=== PATIENT | female | born 1995 | race African-American/Black ===

== ENCOUNTER 2017-04-02 14:37 | Inpatient (IN) | payer BC ==
[~2017-04-02] VITALS: Ht 160 cm; Wt 70.1 kg
[2017-04-02] VITALS (10 sets, daily range): BP systolic 120–166; BP diastolic 58–70
[2017-04-02] MEDS ORDERED: PROPOFOL 50 ML IV ONE (14:52)
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
[2017-04-02] MEDS ORDERED: IV RINGERS,LACTATED 1000ML 1,000 ML IV SCH ×2 (15:14)
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
[2017-04-02] MEDS ORDERED: fentaNYL PF VIAL 100 MCG/2 ML VIAL IV PRN ×4 (15:15→18:30)
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
[2017-04-02 15:21] LABS: BASO % 1 % (0-3); EOS % 2 % (0-3); HEMATOCRIT 39.1 % (36.0-47.0); HEMOGLOBIN 13.3 g/dL (12.0-15.5); LYMPH # 3.8 x10^3/uL (1.0-4.8); LYMPH % 37 % (24-48); MEAN CORPUSCULAR HEMOGLOBIN 32 pg (25-35); MEAN CORPUSCULAR HGB CONC 34 g/dL (31-37); MEAN CORPUSCULAR VOLUME 92 fL (79-100); MONO % 7 % (0-9); NEUT % 54 % (31-73); PLATELET COUNT 254 x10^3/uL (140-400); RED BLOOD COUNT 4.23 x10^6/uL (3.50-5.40); RED CELL DISTRIBUTION WIDTH 13.6 % (11.5-14.5); WHITE BLOOD COUNT 10.5 x10^3/uL (4.0-11.0)
[2017-04-02 15:27] LABS: INR 1.1 (0.8-1.1); PROTHROMBIN TIME PATIENT 13.6 SEC (11.7-14.0)
[2017-04-02 15:28] LABS: CALCIUM 8.7 mg/dL (8.5-10.1); CREATININE 0.9 mg/dL (0.6-1.0); GFR 78.3; POTASSIUM 3.2 mmol/L (3.5-5.1)
[2017-04-02 15:32] LABS: NEG OBC SER NEG; POS OBC SER POS
[2017-04-02 15:35] LABS: DIRECT BILIRUBIN 0.1 mg/dL (0.0-0.2); TOTAL BILIRUBIN 0.7 mg/dL (0.2-1.0); TOTAL PROTEIN 7.8 g/dL (6.4-8.2)
[2017-04-02] MEDS ORDERED: SURGICEL HEMOSTAT 4X8 EACH. ONE (16:14)
[2017-04-02] MEDS ORDERED: PROPOFOL 10 MG/ML (50ML) VIAL. IV ONE (16:21)
[2017-04-02] MEDS ORDERED: ETOMIDATE 20 MG/10 ML VIAL. IV ONE ×2 (16:21)
[2017-04-02] MEDS ORDERED: SUCCINYLCHOLINE 200 MG/10 ML VIAL. ONE ×2 (16:21→16:22)
[2017-04-02] MEDS ORDERED: SEVOFLURANE > 120 MINUTES. IH ONE (16:40)
[2017-04-02] MEDS ORDERED: DEXAMETHASONE SOD PHOS 20 MG/5 ML VIAL. ONE (16:40)
[2017-04-02] MEDS ORDERED: PHENYLEPHRINE in 0.9% NACL PF 1 MG/10 ML DISP.SYRIN. IV ONE (16:40)
[2017-04-02] MEDS ORDERED: ROCURONIUM 50 MG/5 ML VIAL. ONE (16:40)
[2017-04-02] MEDS ORDERED: MIDAZOLAM HCL/PF 2 MG/2 ML VIAL. IV PRN (17:00)
[2017-04-02] MEDS ORDERED: PROCHLORPERAZINE 10 MG/2 ML VIAL. IV PRN (17:00)
[2017-04-02] MEDS ORDERED: POTASSIUM CHLORIDE 20MEQ 50 ML IV SCH (17:00)
[2017-04-02] MEDS ORDERED: HYDROmorphone 2 MG/ML VIAL IV PRN ×2 (17:00)
[2017-04-02] MEDS ORDERED: ONDANSETRON PF 4 MG/2 ML VIAL. IV PRN (17:00)
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
[2017-04-02] MEDS: POTASSIUM CHLORIDE 10MEQ 100 ML IV SCH ×4 (17:40→21:48)
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
[2017-04-02] MEDS: PROPOFOL 100 ML IV PRN ×2 (18:42→21:48)
[2017-04-02 18:53] LABS: BASE EXCESS COOX -4 mmol/L (-3-3); CARBON MONOXIDE 0.3 % (0.0-1.9); HCO3 COOX 19 mmol/L (21-28); METHEMOGLOBIN 0.4 % (0.0-1.9); OXYHEMOGLOBIN 98.4 %; PCO2 COOX 30 mmHg (35-46); PH COOX 7.43 (7.35-7.45); PO2 COOX 268 mmHg (85-108); SAT O2 COOX 99 % (92-99); TOTAL HEMOGLOBIN 11.6 g/dL
[2017-04-02 18:54] LABS: FIO2 COOX 50
[2017-04-02] MEDS: ENOXAPARIN 40 MG/0.4 ML SYRINGE. SQ SCH (21:49)
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
[2017-04-02] MEDS: MORPHINE SULFATE 2 MG/ML DISP.SYRIN. IV PRN (22:44)
--- NOTE | 2017-04-02 23:26 | ACF ---
Admission Forms Criteria ABDOMINAL PAIN Clinical Indications for Admission to Inpatient Care (Place 'X' for any and all applicable criteria): Admission is indicated for ANY ONE of the following(1)(2)(3)(4)(5): [ ]I. Inpatient admission required rather than observation care (Also use Abdominal Pain: Observation Care, as appropriate) because of ANY ONE of the following: [ ]a) Severe pain requiring acute inpatient management [ ]b) Identification of etiology/finding that requires inpatient care (eg, aortic dissection, free air) [ ]c) Absent bowel sounds with complete ileus(6) [ ]d) Suspected toxic megacolon [ ]e) Severe electrolyte abnormalities requiring inpatient care [ ]f) High fever or infection requiring inpatient admission as indicated by ANY ONE of following(7)(8): [ ] i) Appropriate outpatient or observational care antimicrobial treatment unavailable, not effective, or not feasible [ ] ii) Documented bacteremia [ ] iii) Temperature > 104.9 degrees F (oral) [ ] iv) T >103.1 F (oral) or < 96.8 F(rectal) that does not respond to all emergency treatment measures [ ]g) Signs of intestinal obstruction [B] [ ]h) Hemodynamic instability [ ]i) IV fluid to replace significant ongoing losses (greater than 3 L/m2 per day) (12)(13) [ ]j) Percutaneous or open drainage (eg, abscess, biliary tract ) procedures [ ]k) Parenteral nutrition regimen that must be implemented on inpatient basis [ ]l) Other condition,treatment or monitoring requiring inpatient admission. [ ]II. Peritoneal signs present [X]III. Surgery needed that cannot be performed on an ambulatory basis. [ ]IV. Evaluation requires patient to not eat or drink for extended period ( eg, more than 24 hours). [ ]V. Contraindications and/or Inappropriate clinical situations for Observational Care in patients with abdominal pain, when ANY ONE of the following is required: [ ]a) Thorough evaluation is required to prevent catastrophic events due to delays in diagnosing (e.g.Mesenteric ischemia) 1,3 [ ]b) Patient with severe pathology or with chronic symptoms unlikely to improve in the ED stay (3) [ ]. General contraindications and/or Inappropriate clinical situations for Observational Care in patients with abdominal pain, when ANY ONE of the following is required: [ ]a) Prediction of prolongation of LOS based on ANY ONE of the following may be considered as a contraindication for observational care 2, 3, 4, 5, 6, 7, 8, 9, 10, 11 [ ]i) Age > 65 yrs. [ ]ii) Patient arriving by ambulance [ ]iii) Patient with high acuity [ ]iv) Patient requiring vital sign monitoring [ ]v) Patient on IV medication [ ]b) Systolic blood pressures 180mmHg 3,12 [ ]c) Patient with altered mental status including delirium and other alteration of consciousness, (3) [ ]d) Patient whose discharge disposition will be to a nursing home home or rehabilitation home should not be managed in Emergency Department Observation Unit. CMS rule requires 3 days hospital stay before such placement.3,13 [ ]e) Patient with failure to thrive due to broad array of etiologies 3,16,17 [ ]f) Inability to ambulate 3,14 Extended stay beyond goal length of stay may be needed for(2)(3): [ ]a) Persistent abdominal pain with suspected intra-abdominal process [ ]b) Diagnosed condition requiring continued stay (e.g., pancreatitis, complicated diverticulitis) [ ]c) Surgery (e.g., colectomy) The original [facility] content created by [employer] has been revised. The portions of the content which have been revised are identified through the use of italic text or in bold, and [facility] has neither reviewed nor approved the modified material.All other unmodified content is copyright [facility]. Please see references footnoted in the original [facility] edition 2016 Admission Criteria Met?: Yes DEYSI IVEY Apr 02, 2017 23:26
[2017-04-03] VITALS (21 sets, daily range): BP systolic 93–178; BP diastolic 52–85
[2017-04-03] MEDS: MORPHINE SULFATE 2 MG/ML DISP.SYRIN. IV PRN ×3 (00:10→05:23)
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
[2017-04-03] MEDS: PROPOFOL 100 ML IV PRN (05:23)
[2017-04-03 06:49] LABS: BASO % 0 % (0-3); EOS % 1 % (0-3); HEMATOCRIT 31.2 % (36.0-47.0); HEMOGLOBIN 10.7 g/dL (12.0-15.5); LYMPH # 1.1 x10^3/uL (1.0-4.8); LYMPH % 8 % (24-48); MEAN CORPUSCULAR HEMOGLOBIN 32 pg (25-35); MEAN CORPUSCULAR HGB CONC 34 g/dL (31-37); MEAN CORPUSCULAR VOLUME 92 fL (79-100); MONO % 8 % (0-9); NEUT % 84 % (31-73); PLATELET COUNT 188 x10^3/uL (140-400); RED BLOOD COUNT 3.38 x10^6/uL (3.50-5.40); RED CELL DISTRIBUTION WIDTH 13.6 % (11.5-14.5); WHITE BLOOD COUNT 14.1 x10^3/uL (4.0-11.0)
[2017-04-03 07:12] LABS: ALBUMIN 3.2 g/dL (3.4-5.0); ALBUMIN/GLOBULIN RATIO 1.2 (1.0-1.7); CALCIUM 8.6 mg/dL (8.5-10.1); CREATININE 0.6 mg/dL (0.6-1.0); GFR 151.3; POTASSIUM 3.8 mmol/L (3.5-5.1); TOTAL BILIRUBIN 0.7 mg/dL (0.2-1.0); TOTAL PROTEIN 5.9 g/dL (6.4-8.2)
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
--- NOTE | 2017-04-03 08:29 | RAD ---
Indication respiratory failure. A single view of the chest was obtained and is compared to an examination one day earlier. Endotracheal tube has its tip just above the adam and should be retracted 2 to 3 cm. The heart and pulmonary vessels are normal. The lungs are clear of acute infiltrates. There is no pneumothorax. IMPRESSION: Endotracheal tube with its tip just above the adam. The ET tube should be retracted 2 to 3 cm. No acute or focal process seen in the chest
[2017-04-03 08:35] LABS: FIO2 ABG 40; HCO3 ABG 23 mmol/L (21-28); PCO2 ABG 33 mmHg (35-46); PH ABG 7.46 (7.35-7.45); PO2 ABG 160 mmHg (85-108); SAT O2 ABG 98 % (92-99)
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
[2017-04-03] MEDS ORDERED: NALOXONE 0.4 MG/ML VIAL. IV PRN (10:45)
[2017-04-03 10:55] LABS: ART BE ISTAT -5 mmol/L (0-3); ART GLUC ISTAT 117 mg/dL (70-99); ART HCO3 ISTAT 20 mmol/L (21-28); ART HCT ISTAT 25 % (36-40); ART HGB ISTAT 8.5 g/dL (12-15); ART ION CA ISTAT 1.15 mmol/L (1.13-1.32); ART NA ISTAT 138 mmol/L (135-145); ART PCO2 ISTAT 34 mmHg (35-45); ART PH ISTAT 7.37 (7.35-7.45); ART PO2 ISTAT 401 mmHg (75-100); ART SAT O2 SAT 100 % (95-99); ART TCO2 ISTAT 21 mmol/L (21-32); TOSPEC ART
[2017-04-03] MEDS: PANTOPRAZOLE IV PUSH 40 MG VIAL. IVP SCH (11:14)
[2017-04-03] MEDS: IV NORMAL SALINE 1000ML BAG 1,000 ML IV SCH (11:17)
[2017-04-03] MEDS: diphenhydrAMINE 50 MG/ML VIAL IVP PRN ×2 (15:36→21:16)
[2017-04-03] MEDS: IV RINGERS,LACTATED 1000ML 1,000 ML IV SCH (19:15)
[2017-04-03 20:57] LABS: HEMATOCRIT 27.3 % (36.0-47.0); HEMOGLOBIN 9.2 g/dL (12.0-15.5)
[2017-04-03] MEDS ORDERED: FUROSEMIDE 20 MG/2 ML VIAL. IVP ONE (21:15)
[2017-04-03] MEDS ORDERED: ALBUMIN HUMAN 5% 500 ML IV ONE (21:15)
[2017-04-03] MEDS: ENOXAPARIN 40 MG/0.4 ML SYRINGE. SQ SCH (21:27)
[2017-04-04] VITALS (15 sets, daily range): BP systolic 85–117; BP diastolic 47–74
[2017-04-04] MEDS: IV RINGERS,LACTATED 1000ML 1,000 ML IV SCH ×3 (01:25→23:07)
[2017-04-04] MEDS: diphenhydrAMINE 50 MG/ML VIAL IVP PRN ×4 (03:05→21:10)
[2017-04-04 04:37] LABS: BASO % 0 % (0-3); EOS % 0 % (0-3); HEMATOCRIT 28.5 % (36.0-47.0); HEMOGLOBIN 9.6 g/dL (12.0-15.5); LYMPH # 1.7 x10^3/uL (1.0-4.8); LYMPH % 14 % (24-48); MEAN CORPUSCULAR HEMOGLOBIN 32 pg (25-35); MEAN CORPUSCULAR HGB CONC 34 g/dL (31-37); MEAN CORPUSCULAR VOLUME 94 fL (79-100); MONO % 8 % (0-9); NEUT % 78 % (31-73); PLATELET COUNT 147 x10^3/uL (140-400); RED BLOOD COUNT 3.04 x10^6/uL (3.50-5.40); RED CELL DISTRIBUTION WIDTH 14.1 % (11.5-14.5); WHITE BLOOD COUNT 11.5 x10^3/uL (4.0-11.0)
[2017-04-04 05:01] LABS: CALCIUM 8.6 mg/dL (8.5-10.1); CREATININE 0.8 mg/dL (0.6-1.0); GFR 108.5; POTASSIUM 3.3 mmol/L (3.5-5.1)
[2017-04-04] MEDS: IV NORMAL SALINE 1000ML BAG 1,000 ML IV SCH (05:39)
[2017-04-04] MEDS: PANTOPRAZOLE IV PUSH 40 MG VIAL. IVP SCH (08:16)
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
[2017-04-04] MEDS ORDERED: diphenhydrAMINE 50 MG/ML VIAL IVP PRN (11:15)
[2017-04-04] MEDS: POTASSIUM CHLORIDE 10MEQ 100 ML IV SCH ×2 (12:03→15:29)
[2017-04-04] MEDS ORDERED: ACETAMINOPHEN 325 MG TABLET. PO PRN (19:45)
[2017-04-04] MEDS ORDERED: ACETAMINOPHEN 325 MG SUPP.RECT. PR PRN (21:00)
[2017-04-04] MEDS: ENOXAPARIN 40 MG/0.4 ML SYRINGE. SQ SCH (21:10)
[2017-04-04 21:47] LABS: BILIRUBIN,URINE NEGATIVE (NEG); GLUCOSE,URINE NEGATIVE (NEG); NITRITE,URINE POSITIVE (NEG); PROTEIN,URINE 100 mg/dL (NEG-TRACE); UROBILINOGEN,URINE 0.2 mg/dL (0.2 mg/dL)
[2017-04-04 21:51] LABS: BACTERIA,URINE MODERATE /HPF (0-FEW); SQUAMOUS EPITHELIAL CELL,UR OCC /LPF; WBC,URINE TNTC /HPF (0-4)
[2017-04-05] VITALS (7 sets, daily range): BP systolic 84–106; BP diastolic 46–62
[2017-04-05 05:25] LABS: BASO % 0 % (0-3); EOS % 0 % (0-3); HEMATOCRIT 25.2 % (36.0-47.0); HEMOGLOBIN 8.5 g/dL (12.0-15.5); LYMPH # 1.3 x10^3/uL (1.0-4.8); LYMPH % 12 % (24-48); MEAN CORPUSCULAR HEMOGLOBIN 32 pg (25-35); MEAN CORPUSCULAR HGB CONC 34 g/dL (31-37); MEAN CORPUSCULAR VOLUME 94 fL (79-100); MONO % 8 % (0-9); NEUT % 80 % (31-73); PLATELET COUNT 144 x10^3/uL (140-400); RED BLOOD COUNT 2.68 x10^6/uL (3.50-5.40); RED CELL DISTRIBUTION WIDTH 13.6 % (11.5-14.5); WHITE BLOOD COUNT 11.3 x10^3/uL (4.0-11.0)
[2017-04-05 05:53] LABS: CALCIUM 8.2 mg/dL (8.5-10.1); CREATININE 0.7 mg/dL (0.6-1.0); GFR 126.6; POTASSIUM 3.5 mmol/L (3.5-5.1)
[2017-04-05] MEDS: diphenhydrAMINE 50 MG/ML VIAL IVP PRN ×2 (07:38→14:51)
[2017-04-05] MEDS: PANTOPRAZOLE IV PUSH 40 MG VIAL. IVP SCH (07:38)
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
[2017-04-05] MEDS ORDERED: BENZOCAINE/MENTHOL LOZENGE. PO PRN (10:30)
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
[2017-04-05] MEDS: IV NORMAL SALINE 1000ML BAG 1,000 ML IV SCH (11:00)
[2017-04-05] MEDS: IV RINGERS,LACTATED 1000ML 1,000 ML IV SCH (11:08)
[2017-04-05] MEDS: POLYVINYL ALCOHOL 1.4% OPHTH SOLUTION 15ML BOTTLE. OU PRN (12:14)
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
[2017-04-05] MEDS: POTASSIUM CL 20MEQ-0.45% NACL 1,000 ML IV SCH (18:17)
[2017-04-05] MEDS ORDERED: diphenhydrAMINE 50 MG/ML VIAL IVP PRN (20:45)
[2017-04-05] MEDS: ENOXAPARIN 40 MG/0.4 ML SYRINGE. SQ SCH (20:52)
[2017-04-05] MEDS: oxyCODONE/APAP 5/325 1 TAB TABLET PO PRN (21:21)
[2017-04-06] MEDS: fentaNYL PF VIAL 100 MCG/2 ML VIAL IV PRN ×2 (01:03→04:42)
[2017-04-06 03:01] VITALS: BP 101/60
[2017-04-06] MEDS: oxyCODONE/APAP 5/325 1 TAB TABLET PO PRN ×5 (06:11→23:15)
[2017-04-06 07:00] VITALS: BP 100/52
[2017-04-06] MEDS: POLYVINYL ALCOHOL 1.4% OPHTH SOLUTION 15ML BOTTLE. OU PRN (07:55)
[2017-04-06] MEDS: POTASSIUM CL 20MEQ-0.45% NACL 1,000 ML IV SCH ×2 (08:30→23:16)
[2017-04-06 08:37] LABS: BASO % 0 % (0-3); EOS % 2 % (0-3); HEMATOCRIT 24.5 % (36.0-47.0); HEMOGLOBIN 8.3 g/dL (12.0-15.5); LYMPH # 1.2 x10^3/uL (1.0-4.8); LYMPH % 18 % (24-48); MEAN CORPUSCULAR HEMOGLOBIN 31 pg (25-35); MEAN CORPUSCULAR HGB CONC 34 g/dL (31-37); MEAN CORPUSCULAR VOLUME 92 fL (79-100); MONO % 7 % (0-9); NEUT % 73 % (31-73); PLATELET COUNT 167 x10^3/uL (140-400); RED BLOOD COUNT 2.66 x10^6/uL (3.50-5.40); RED CELL DISTRIBUTION WIDTH 13.1 % (11.5-14.5); WHITE BLOOD COUNT 6.9 x10^3/uL (4.0-11.0)
[2017-04-06 09:00] LABS: ALBUMIN 2.7 g/dL (3.4-5.0); ALBUMIN/GLOBULIN RATIO 0.8 (1.0-1.7); CREATININE 0.6 mg/dL (0.6-1.0); GFR 151.3; POTASSIUM 3.4 mmol/L (3.5-5.1); TOTAL BILIRUBIN 0.7 mg/dL (0.2-1.0); TOTAL PROTEIN 5.9 g/dL (6.4-8.2)
[2017-04-06] MEDS ORDERED: diphenhydrAMINE HCL 25 MG CAPSULE PO PRN (09:30)
[2017-04-06] MEDS: PANTOPRAZOLE 40 MG TABLET.DR. PO SCH (10:28)
[2017-04-06 11:00] VITALS: BP 90/55
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
[2017-04-06 15:00] VITALS: BP 78/37
[2017-04-06] MEDS ORDERED: CONTRAST GIVEN MC PRN (15:45)
[2017-04-06] MEDS ORDERED: IOHEXOL 300 MG/ML 75 ML VIAL IV ONE (15:45)
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
[2017-04-06 19:31] VITALS: BP 102/46
[2017-04-06] MEDS: ENOXAPARIN 40 MG/0.4 ML SYRINGE. SQ SCH (21:30)
[2017-04-06 23:15] VITALS: BP 113/48
[2017-04-07 03:42] VITALS: BP 91/44
[2017-04-07] MEDS: oxyCODONE/APAP 5/325 1 TAB TABLET PO PRN ×3 (06:40→20:35)
[2017-04-07 07:00] VITALS: BP 96/51
[2017-04-07] MEDS: fentaNYL PF VIAL 100 MCG/2 ML VIAL IV PRN (08:57)
[2017-04-07] MEDS: PANTOPRAZOLE 40 MG TABLET.DR. PO SCH (08:57)
[2017-04-07] MEDS: POTASSIUM CL 20MEQ-0.45% NACL 1,000 ML IV SCH ×2 (08:59→22:50)
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
[2017-04-07 11:00] VITALS: BP 108/58
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
[2017-04-07 15:00] VITALS: BP 91/58
[2017-04-07 19:12] VITALS: BP 111/62
[2017-04-07] MEDS: ENOXAPARIN 40 MG/0.4 ML SYRINGE. SQ SCH (20:32)
[2017-04-08 00:08] VITALS: BP 105/59
[2017-04-08 03:15] VITALS: BP 100/66
[2017-04-08] MEDS: oxyCODONE/APAP 5/325 1 TAB TABLET PO PRN ×2 (03:43→09:13)
[2017-04-08 05:10] LABS: BASO % 0 % (0-3); EOS % 4 % (0-3); HEMATOCRIT 25.2 % (36.0-47.0); HEMOGLOBIN 8.5 g/dL (12.0-15.5); LYMPH # 2.3 x10^3/uL (1.0-4.8); LYMPH % 31 % (24-48); MEAN CORPUSCULAR HEMOGLOBIN 32 pg (25-35); MEAN CORPUSCULAR HGB CONC 34 g/dL (31-37); MEAN CORPUSCULAR VOLUME 94 fL (79-100); MONO % 9 % (0-9); NEUT % 55 % (31-73); PLATELET COUNT 205 x10^3/uL (140-400); RED BLOOD COUNT 2.68 x10^6/uL (3.50-5.40); RED CELL DISTRIBUTION WIDTH 13.5 % (11.5-14.5); WHITE BLOOD COUNT 7.3 x10^3/uL (4.0-11.0)
[2017-04-08 05:24] LABS: ALBUMIN 2.7 g/dL (3.4-5.0); ALBUMIN/GLOBULIN RATIO 0.9 (1.0-1.7); CALCIUM 8.5 mg/dL (8.5-10.1); TOTAL PROTEIN 5.8 g/dL (6.4-8.2)
[2017-04-08 05:25] LABS: CREATININE 0.7 mg/dL (0.6-1.0); GFR 126.6; POTASSIUM 3.4 mmol/L (3.5-5.1); TOTAL BILIRUBIN 0.5 mg/dL (0.2-1.0)
[2017-04-08 07:00] VITALS: BP 100/56
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
[2017-04-08] MEDS: PANTOPRAZOLE 40 MG TABLET.DR. PO SCH (09:13)
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
[2017-04-08] MEDS ORDERED: OXYC1TAB7 PO (10:48)
[2017-04-08 11:00] VITALS: BP 96/63
[2017-04-08] MEDS ORDERED: POTASSIUM CHLORIDE 20 MEQ TABLET.ER. PO ONE (11:00)
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
== END 2017-04-08 13:00 | disposition home or self-care (01) | DRG 326 ==
LOC: ER 14:37 → EEVIPCON 14:37 → 1 WEST ICU 17:13 → 4 NORTH 04-04 13:11
PROVIDERS: ADMIT Internal Medicine; ATTEND Internal Medicine
PROC: 0BH18EZ Insertion of Endotracheal Airway into Trachea, Via Natural or Artificial Opening Endoscopic (ICD-10-PCS; 2017-04-02)
PROC: 5A09357 Assistance with Respiratory Ventilation, Less than 24 Consecutive Hours, Continuous Positive Airway Pressure (ICD-10-PCS; 2017-04-02)
PROC: 0DQ60ZZ Repair Stomach, Open Approach (ICD-10-PCS; 2017-04-02)
PROC: 0FB00ZZ Excision of Liver, Open Approach (ICD-10-PCS; 2017-04-02)
PROC: 0DB80ZZ Excision of Small Intestine, Open Approach (ICD-10-PCS; principal; 2017-04-02 15:00)
PROC: 5A1935Z Respiratory Ventilation, Less than 24 Consecutive Hours (ICD-10-PCS; 2017-04-03)
DX: S31.639A Puncture wound without foreign body of abdominal wall, unspecified quadrant with penetration into peritoneal cavity, initial encounter (principal); J96.00 Acute respiratory failure, unspecified whether with hypoxia or hypercapnia; N17.0 Acute kidney failure with tubular necrosis; D62 Acute posthemorrhagic anemia; E44.1 Mild protein-calorie malnutrition; E87.6 Hypokalemia; D72.828 Other elevated white blood cell count; Z68.27 Body mass index [BMI] 27.0-27.9, adult; W34.00XA Accidental discharge from unspecified firearms or gun, initial encounter; Z87.891 Personal history of nicotine dependence; Z88.1 Allergy status to other antibiotic agents; Z79.899 Other long term (current) drug therapy
CPT/HCPCS: 31500; 36415; 36600; 71010; 74000; 74177; 80048; 80053; 80076; 81001; 82803; 82805; 83690; 84703; 85014; 85018; 85027; 85610; 85730; 86850; 86900; 86901; 86920; 87040; 87086; 87186; 87641; 88307; 94002; 94003; C9113; G0238; G0480; J0330; J0694; J1100; J1170; J1200; J1650; J1956; J2250; J2270; J2370; J2704; J3010; J3480; J7030; J7120; P9045; Q0163; Q9967; 97116; 97530; 97535; 99291-25

== ENCOUNTER → 2017-05-05 | Day surgery (SDC) | payer BC ==
[~2017-05-05] MED LIST: LIDOCAINE 1% Multi-Dose 20 ML VIAL. INJ ONE; LIDOCAINE 1%/EPI 1:100,000 20 ML VIAL. ONE; OXYC1TAB7 PO
[2017-05-05 11:02] VITALS: BP 94/58
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
== END | disposition home or self-care (01) ==
LOC: SURG 10:43
PROVIDERS: ATTEND Surgery
DX: L92.3 Foreign body granuloma of the skin and subcutaneous tissue (principal); Z72.89 Other problems related to lifestyle; Z88.1 Allergy status to other antibiotic agents
CPT/HCPCS: 10120; J3490